=== PATIENT | female | born 1990 | race Caucasian/White ===

== ENCOUNTER 2016-11-12 14:21 | Emergency (ER) | payer OTHER ==
[2016-11-12] MEDS ORDERED: MAGNESIUM CITRATE 296 ML BOTTLE PO ONE (14:30)
[2016-11-12] MEDS ORDERED: PROMETHAZINE HCL 25 MG/ML VIAL IM ONE (15:25)
[2016-11-12] MEDS ORDERED: BISACODYL 5 MG TABLET.DR PO ONE (15:26)
[2016-11-12 16:25] VITALS: BP 128/58
--- NOTE | 2016-11-12 17:02 | Diagnostic Imaging Report ---
[facility] [address] [facility].[address] [address] Report Submission Date: Nov 12, 2016 3:13:44 PM CDT Patient Study Name: NANCY SCOTT Date: Nov 12, 2016 2:52:05 PM CDT Modality Type: CR Gender: F Description: ABDOMEN : 89 Institution: [facility] Physician: LEV BARRIOS (BURGLAR ALARM SUPERINTENDENT) - ER KUB supine and upright Clinical history: Abdominal pain Technique ap supine and upright radiographs of the abdomen Findings: The bowel gas pattern is nonspecific. No renal calcifications are seen. The bones are within normal limits. No abdominal masses identified. Retained fecal material is present in the colon. No free air is seen. Impression: Constipation Electronically signed on Nov 12, 2016 3:13:44 PM CDT by: Osvaldo REAGAN
--- NOTE | 2016-11-12 19:16 | ED Physician Documentation ---
Abdominal Pain - HISTORIAN Historian: patient - HPI Stated Complaint: Constipation Chief Complaint: Abdominal Pain Onset: days ago (10) Timing: worse Context: denies: out of country travel, bad food Quality: pain, cramping Associated Symptoms: denies: fever, chills, nausea, vomiting Further Comments: yes (26 year old female patient presents with complaint of no BM x 10 days. Patient c/o abdominal cramping. Patient requesting jug of go- lytely. Patient reports using colace tid and miralax bid) - ROS CONST: no problems GI/: constipation. denies: black stools, bloody urine, bloody stools CVS/RESP: none EYES/ENT: none MS/SKIN/LYMPH: none NEURO/PSYCH: none - SOCIAL HX Smoking History: cigarettes - FAMILY HX Family History: denies: none - PAST HX Past History: none Other History: other (chronic constipation) Home Medications: Ambulatory Orders Medication Instructions Recorded Bisacodyl [Women's Laxative] 10 mg PO DAILY #60 tablet 11/12/16 Allergies/Adverse Reactions: Allergies Allergy/AdvReac Type Severity Reaction Status Date / Time haloperidol [From Haldol] Allergy Severe involuntary Verified 11/12/16 14:44 musle movement haloperidol lactate Allergy Severe involuntary Verified 11/12/16 14:44 [From Haldol] musle movement codeine [Codeine] Allergy Mild Verified 11/12/16 14:44 - VITAL SIGNS Vital Signs: Vital Signs Temp Pulse Resp BP Pulse Ox 98.1 F 88 18 128/58 98 11/12/16 14:25 11/12/16 16:24 11/12/16 16:24 11/12/16 16:24 11/12/16 16:24 - REVIEWED ASSESSMENTS Nursing Assessment Reviewed: Yes Vitals Reviewed: Yes Progress - Progress Progress: 1 bottle Magnesium citrate given in Er. Patient states she does not have money for over the counter medications. Reports conflicting constipation meds to RN and myself. Patient c/o abdominal cramping. Ordered promethazine IM - patient refused injection. Multiple requests for GoLytely. Explained Golytely was not initial treatment for constipation. Recommended using fleets enema or suppository on arrival home. ED Results Lab/Radiology - Radiology Radiology Impressions: KUB supine and upright Clinical history: Abdominal pain Technique ap supine and upright radiographs of the abdomen Findings: The bowel gas pattern is nonspecific. No renal calcifications are seen. The bones are within normal limits. No abdominal masses identified. Retained fecal material is present in the colon. No free air is seen. Impression: Constipation - Orders Orders: ED Orders Category Date Time Status ABDOMEN COMPLETE [RAD] Stat Exams 11/12/16 Completed Bisacodyl [Dulcolax] Med 11/12/16 15:26 Discontinued 10 mg PO NOW ONE Magnesium Citrate [Citrate of Magnesia] Med 11/12/16 14:30 Discontinued 296 ml PO NOW ONE Promethazine HCl [Phenergan] Med 11/12/16 15:25 Discontinued 25 mg IM NOW ONE Abdominal Pain Physical Exam - Physical Exam General Appearance: moderate distress EENT: eye inspection normal, [facility] RESPIRATORY: no resp distress, chest non-tender, breath sounds normal CVS: reg rate & rhythm, heart sounds normal, equal pulses, no murmur, no gallop , PMI nml, no JVD, no friction rub, 24 ABDOMEN: soft, no organomegaly, no abdominal bruit, no distension, abnormal bowel sounds (hypoactive ), decreased BS SKIN: normal color, warm/dry, NR, INT, PAL, DR EXTREMITIES: non-tender, normal range of motion, no evidence of injury, no edema , J, [employer] NEURO: oriented X3, CN's nml as tested, motor nml, sensation nml Vital Signs: Vital Signs Temp Pulse Resp BP Pulse Ox 98.1 F 88 18 128/58 98 11/12/16 14:25 11/12/16 16:24 11/12/16 16:24 11/12/16 16:24 11/12/16 16:24 Discharge Clincal Impression: Constipation Qualifiers: Constipation type: unspecified constipation type Qualified Code(s): K59.00 - Constipation, unspecified Prescriptions: Bisacodyl [Women's Laxative] 10 mg PO DAILY #60 tablet Referrals: Primary Doctor,No [Primary Care Provider] - 2 Days Home Medications: Ambulatory Orders Bisacodyl [Women's Laxative] 10 mg PO DAILY #60 tablet 11/12/16 Condition: Stable Disposition: 01 HOME, SELF-CARE Decision to Admit: NO Decision Time: 16:10
== END 2016-11-12 16:24 | disposition home or self-care (01) ==
LOC: ED 14:21
DX: K59.00 Constipation, unspecified (principal)
CPT/HCPCS: 74020; 96372; 99283

== ENCOUNTER 2017-04-17 03:56 | Emergency (ER) | payer OTHER ==
[2017-04-17] MEDS: ONDANSETRON HCL/PF 4 MG/ 2ML VIAL IVP ONE (04:50)
--- NOTE | 2017-04-17 04:51 | ED Physician Documentation ---
General Adult - HPI Stated Complaint: abd pain n/v Chief Complaint: General Adult Additional Information: Vomiting since . 14 times todayy. Has burning epigastric pain. Knows she had an ulcer because she researched it. Took Tums today w/o relief. Not sure if she urinated today at all. No fever. Unknown last menstrual period. Nauseated at time of exam. Last normal bowel movement 2 days ago. - ROS CONST: denies: fever GI/: vomiting, nausea - PAST HX Past History: other (dental pain, abdominal pain, constipation) Surgeries/Procedures: (x2) Allergies/Adverse Reactions: Allergies Allergy/AdvReac Type Severity Reaction Status Date / Time codeine [Codeine] Allergy Severe Nausea/Vomi Verified 04/17/17 04:12 ting haloperidol [From Haldol] Allergy Severe involuntary Verified 04/17/17 04:12 musle movement haloperidol lactate Allergy Severe involuntary Verified 04/17/17 04:12 [From Haldol] musle movement Home Medications: Ambulatory Orders Medication Instructions Recorded NK [NK] 04/17/17 - SOCIAL HX Smoking History: cigarettes Drug Use: marijuana - FAMILY HX Family History: No - VITAL SIGNS Vital Signs: Vital Signs Temp Pulse Resp BP Pulse Ox 97.6 F 70 18 121/70 100 04/17/17 03:57 04/17/17 03:57 04/17/17 03:57 04/17/17 03:57 04/17/17 03:57 - REVIEWED ASSESSMENTS Nursing Assessment Reviewed: Yes Vitals Reviewed: Yes Progress - Progress Progress: UDS non negative for marijuana, cocaine, opiates, oxycodone. Much calme after zofran, fluids, gi cocktail. Urine sp gr 1.020 ED Results Lab/Radiology - Orders Orders: ED Orders Category Date Time Status CBC/PLATELET/DIFF Routine Lab 04/17/17 Ordered CMP Routine Lab 04/17/17 Ordered DRUG SCREEN 8,URINE Stat Lab 04/17/17 Ordered URINALYSIS Routine Lab 04/17/17 Ordered URINE HCG [URINE HCG] Stat Lab 04/17/17 Uncollected 0.9 % Sodium Chloride [Normal Saline] 1,000 ml Med 04/17/17 04:40 Active IV Q1H Ondansetron HCl/Pf [Zofran 4 mg/2 ml] Med 04/17/17 04:40 Discontinued 4 mg IVP NOW ONE General Adult Physical Exam - PHYSICAL EXAM GENERAL APPEARANCE: moderate distress (anxious, rocking back and forth) EENT: eye inspection normal, ENT inspection normal, pharynx normal, dry mucous membranes NECK: normal inspection, supple RESPIRATORY: no resp distress, breath sounds normal CVS: reg rate & rhythm, heart sounds normal, no murmur ABDOMEN: soft, normal bowel sounds, no distension, tenderness (diffuse, begins when hips are touched. ) BACK: normal inspection SKIN: warm/dry, normal color EXTREMITIES: normal range of motion, no evidence of injury NEURO: CN's nml as tested, motor nml, sensation nml, other Discharge Clincal Impression: Nausea and vomiting Referrals: Primary Doctor,No [Primary Care Provider] - 2 Days Additional Instructions: Advance your diet very slowly. If you vomit, wait an hour before trying sips of clear liquids. Condition: Good Disposition: 01 HOME, SELF-CARE Decision to Admit: NO Decision Time: 05:50
[2017-04-17 04:56] LABS: BASOPHILS % 0.5 (0.0-1.5); EOSINOPHILS % 1.6 % (0.0-6.8); MEAN CORPUSCULAR HEMOGLOBIN 28.1 pg (28.0-34.0); MONOCYTES % 4.8 % (0.0-11.0); NEUTROPHILS # 4.7 # k/uL (1.4-7.7)
[2017-04-17] MEDS: 0.9 % SODIUM CHLORIDE 1,000 ML IV ONE ×2 (05:00→05:53)
[2017-04-17 05:11] LABS: eGFR (African) > 60; eGFR (Non-African) > 60
[2017-04-17] MEDS: MAG HYDROX/AL HYDROX/SIMETH 30 ML, Lidocaine 2%Visc 15ml 20 MG, PHENobarb/HYOSCY/ATROPI... PO ONE ×3 (05:25)
[2017-04-17] MEDS: MAGNESIUM HYDROXIDE/AL HYDROX 30 ML UDC PO ONE (05:43)
[2017-04-17] MEDS: Lidocaine 2%Visc 15ml 20 MG/ML UDC ONE (05:44)
[2017-04-17 06:27] VITALS: BP 111/68
[2017-04-18 06:13] LABS: APPEARANCE,URINE CLEAR (CLEAR); COLOR,URINE YELLOW (YELLOW); OCCULT BLOOD,URINE NEGATIVE (NEGATIVE); PH URINE 6.5 (5.0 - 8.0); URINE HCG NEGATIVE (NEGATIVE)
[2017-04-18 06:14] LABS: CANNABINOIDS NON NEGATIVE ng/mL (< 50)
[2017-04-18 06:15] LABS: METHYLENEDIOXYMETHAMPHETAMINE NEGATIVE ng/mL (<500)
[2017-04-20 11:21] LABS: CANNABINOIDS CONFIRMATION >150 ng/mL (<15)
== END 2017-04-17 06:17 | disposition home or self-care (01) ==
LOC: ED 03:56
DX: R11.2 Nausea with vomiting, unspecified (principal); K59.00 Constipation, unspecified; R10.9 Unspecified abdominal pain; K02.9 Dental caries, unspecified
CPT/HCPCS: 80053; 80377; 81002; 81025; 85025; 87400; 96365; 96375; 99283; J2405; A9270-GY; G0481; J7030; S1016

== ENCOUNTER 2017-06-22 07:20 | Emergency (ER) | payer OTHER ==
[~2017-06-22 07:20] MED LIST: EPINEPHrine 0.1 MG/ML DISP.SYRIN IVP STA; EPINEPHrine/PF 1 MG/1 ML 1:1000 IVP ONE
[2017-06-22] MEDS ORDERED: EPINEPHrine 0.1 MG/ML DISP.SYRIN IVP STA ×2 (07:25→07:30)
[2017-06-22] MEDS ORDERED: EPINEPHrine/PF 1 MG/1 ML 1:1000 IVP ONE (07:25)
[2017-06-22] MEDS ORDERED: LACTATED RINGERS 1,000 ML IV ONE (07:28)
[2017-06-22 07:48] LABS: MEAN CORPUSCULAR HEMOGLOBIN 28.9 pg (28.0-34.0); MEAN CORPUSCULAR VOLUME 104.6 fl (80.0-100.0)
[2017-06-22] MEDS ORDERED: NORMAL SALINE 500 ML IV.SOLN IV SCH (08:30)
--- NOTE | 2017-06-22 08:35 | ED Physician Documentation ---
General Adult - HISTORIAN Historian: patient - HPI Stated Complaint: pulseless Chief Complaint: General Adult Onset: hours Timing: still present Severity: severe Further Comments: yes (Pt is a 27 yo female who had been "groggy" yesterday according to her partner from Klonopin use, he said. He awoke this am to discover that the pt did not appear to be breathing. It is unknown how long she had been in this state. EMT's arrived at 6:55 am to find pt pulseless with pupils fixed and dilated. CPR was initiated and epinephrine was given x 2 prior to arrival in ER. In ER CPR was continued and pt was given epinephrine x 2. Pt appeared briefly to have a possible rhythm of low-voltage vfib and was shocked x 1. Pt remained in asystole, with pupils fixed and dilated. Code was discontinued at 7:34 am.) - ROS CONST: other (cardiac arrest, unresponsive) - PAST HX Past History: other (anxiety/depression) Allergies/Adverse Reactions: Allergies Allergy/AdvReac Type Severity Reaction Status Date / Time codeine [Codeine] Allergy Severe Nausea/Vomi Verified 04/17/17 04:12 ting haloperidol [From Haldol] Allergy Severe involuntary Verified 04/17/17 04:12 musle movement haloperidol lactate Allergy Severe involuntary Verified 04/17/17 04:12 [From Haldol] musle movement Home Medications: Ambulatory Orders Medication Instructions Recorded Ondansetron HCl Rapdis [Zofran Odt] 4 mg PO Q8 #5 tab 04/17/17 - SOCIAL HX Smoking History: cigarettes - FAMILY HX Family History: No - VITAL SIGNS Vital Signs: Vital Signs Temp Pulse Resp BP Pulse Ox 0 L 0 L 111/68 06/22/17 07:20 06/22/17 07:20 04/17/17 06:22 - REVIEWED ASSESSMENTS Nursing Assessment Reviewed: Yes Vitals Reviewed: Yes Progress - Progress Progress: NS 1 L IVF started water vessel captain epi x 2 water vessel captain Pt intubated with autopulse in place LR 1 L started in ER epi x 2 shock x 1 for possible low voltage vfib asystole epi x 1 code discontinued at 07:34 am ED Results Lab/Radiology - Lab Results Lab Results: Lab Results 06/22/17 06/22/17 07:25 07:25 WBC 10.40 K/ul K/ul (4.00-12.00) RBC 4.04 M/ul M/ul (3.90-5.20) Hgb 11.7 g/dL L g/dL (12.0-16.0) Hct 42.3 % % (34.5-46.5) MCV 104.6 fl H fl (80.0-100.0) MCH 28.9 pg pg (28.0-34.0) MCHC 27.6 g/dL L g/dL (30.0-36.0) RDW 12.6 % % (11.3-14.3) Plt Count 294 K/mm3 K/mm3 (130-400) Neut % (Auto) Pending Lymph % (Auto) Pending Lane % (Auto) Pending Eos % (Auto) Pending Baso % (Auto) Pending Neut # (Auto) Pending Lymph # (Auto) Pending Lane # (Auto) Pending Eos # (Auto) Pending Baso # (Auto) Pending Reactive Lymphs % Pending Reactive Lymphs # Pending CK-MB (CK-2) 86.5 ng/mL H ng/mL (0.0-5.6) Troponin I 0.20 ng/mL H ng/mL (0.03-0.06) - Orders Orders: ED Orders Category Date Time Status CBC AUTO DIFF Routine Lab 06/22/17 07:25 Results CKMB Routine Lab 06/22/17 07:25 Completed CMP Routine Lab 06/22/17 07:25 Received CREATINE KINASE Routine Lab 06/22/17 07:25 Received TROPONIN I (cTnI) Routine Lab 06/22/17 07:25 Completed General Adult Physical Exam - PHYSICAL EXAM GENERAL APPEARANCE: pt unresponsive, intubated EENT: other (pupils fixed and dilated) RESPIRATORY: other (pt intubated) CVS: other (CPR in progress) SKIN: cyanosis (peripheral ) NEURO: other (unresponsive) Discharge Clincal Impression: Cardiorespiratory arrest Referrals: Primary Doctor,No [Primary Care Provider] - Disposition: 20 Decision to Admit: NO Decision Time: 07:45
[2017-06-22] MEDS ORDERED: 0.9 % SODIUM CHLORIDE 1,000 ML IV ONE (08:47)
[2017-06-22 08:53] LABS: HYPOCHROMASIA 1+ (NEGATIVE); MONOCYTES % 3 % (0-11); SEGMENTED NEUTROPHILS % 50 % (39-79)
[2017-06-22 08:55] LABS: eGFR (African) 41; eGFR (Non-African) 34
[2017-06-22 10:26] VITALS: BP 0/0
== END 2017-06-22 08:40 | disposition expired ==
LOC: ED 07:20
DX: I46.9 Cardiac arrest, cause unspecified (principal)
CPT/HCPCS: 80053; 82550; 82553; 84484; 85025; J0171; J7030; J7120; 31500; 96365; 96375; 99284; 99285; S1016